=== PATIENT | female | born 1990 | race African-American/Black ===

== ENCOUNTER 2019-02-27 10:52 | Emergency (ER) | payer SELFPAY ==
--- NOTE | 2019-02-27 11:11 | EDM.PDOC ---
ED HPI GENERAL MEDICAL PROBLEM - General Chief Complaint: Abdominal Pain Stated Complaint: DARK BROWN VAGINAL BLEEDING/NAUSEA/ABD PAIN Time Seen by Provider: 02/27/19 11:06 Source of Information: Reports: Patient, RN Notes Reviewed History Limitations: Reports: No Limitations - History of Present Illness INITIAL COMMENTS - FREE TEXT/NARRATIVE: Patient is a 28-year-old female who presents to the ED for the evaluation of brown vaginal discharge, nausea, and abdominal pain. The patient notes that she had developed minimal abdominal pain and some lower pelvic pain yesterday. She took 400 mg of ibuprofen in the morning and then 400 mg again at night, she states that this did help initially but came back after the medicine wore off. The patient rate her pain at a 1 out of 10, and characterizes this as a cramping type of pain. She states that when she wipes after voiding she notices some dark brown discharge on the toilet paper. She notes that her period is supposed to be due around the 17. She's never experienced any sort of brown vaginal discharge for. She further notes some urinary frequency with this but no dysuria. She also states that the cramping pain kind of comes and goes, and had a normal bowel movement this morning. She complains of some light nausea, headache. She denies any sort of chest pain, fevers or chills, shortness of breath, black or bloody stools, history of any sort of ovarian cancer in her family or ovarian cysts, or any sort of history of ulcers or heartburn. Her primary care provider is Terrie Rivas. She states that she has had a but has not had any sort of other abdominal surgeries, so still retains her appendix and gallbladder. She also states that she's had her tubes tied, so she does not think she could be at this time. Lower Abdomen Pain Score (Numeric/FACES): 1 - Related Data Allergies Allergy/AdvReac Type Severity Reaction Status Date / Time No Known Allergies Allergy Verified 04/27/18 17:37 Home Meds: Home Meds . [No Known Home Meds] 02/27/19 [History] Past Medical History [employer]OR [employer] AD[employer]MENT History: Reports: - Past Surgical History Female Surgical History: Reports: Section Social & Family History - Family History Family Medical History: Noncontributory - Tobacco Use Smoking Status *Q: Current Every Day Smoker Years of Tobacco use: 7 Packs/Tins Daily: 1 - Caffeine Use Caffeine Use: Reports: Energy Drinks - Recreational Drug Use Recreational Drug Use: No ED ROS GENERAL - Review of Systems Review Of Systems: See Below Constitutional: Denies: Fever, Chills, Decreased Appetite HEENT: Reports: No Symptoms Respiratory: Denies: Shortness of Breath Cardiovascular: Denies: Chest Pain Endocrine: Reports: No Symptoms GI/Abdominal: Reports: Abdominal Pain (mid epigastric abd pain), Nausea. Denies : Black Stool, Bloody Stool, Constipation, Diarrhea, Decreased Appetite, Vomiting : Reports: Discharge (brown vaginal discharge), Frequency. Denies: Dysuria, Hematuria, Irregular Menses, Urgency Musculoskeletal: Reports: No Symptoms Skin: Reports: No Symptoms Neurological: Reports: No Symptoms Psychiatric: Reports: No Symptoms Hematologic/Lymphatic: Reports: No Symptoms Immunologic: Reports: No Symptoms ED EXAM, RENAL/ - Physical Exam Exam: See Below Exam Limited By: No Limitations General Appearance: Alert, WD/WN, No Apparent Distress Throat/Mouth: Normal Inspection, Normal Lips, Normal Teeth, Normal Gums, Normal Oropharynx, Normal Voice, No Airway Compromise Head: Atraumatic, Normocephalic Neck: Normal Inspection Respiratory/Chest: No Respiratory Distress, Lungs Clear, Normal Breath Sounds, No Accessory Muscle Use, Chest Non-Tender Cardiovascular: Normal Peripheral Pulses, Regular Rate, Rhythm, No Murmur GI/Abdominal: Normal Bowel Sounds, Soft, No Distention, No Mass, Tender (over epigastrium mainly) (Female) Exam: Normal External Exam, Normal Speculum Exam, Adnexal Tenderness (Right sided), Vaginal Discharge (scant amount of light brown, non malodorous discharge noted. swab was obtained for wet prep). No: Adnexal Mass Rectal (Female) Exam: Deferred Extremities: Normal Inspection, Normal Capillary Refill Neurological: Alert, Oriented, Normal Cognition, No Motor/Sensory Deficits Psychiatric: Normal Affect, Normal Mood Skin Exam: Warm, Dry, Intact, Normal Color, No Rash Course - Vital Signs Last Recorded V/S: Last Vital Signs Temp 98.1 F 02/27/19 11:05 Pulse 96 02/27/19 11:05 Resp 20 02/27/19 11:05 BP 125/87 02/27/19 11:05 Pulse Ox 100 02/27/19 11:05 - Orders/Labs/Meds Orders: Active Orders 24 hr Category Date Time Status Peripheral IV Care [RC] . DIRECTED Care 02/27/19 11:21 Active Sodium Chloride 0.9% [Saline Flush] Med 02/27/19 11:20 Active 10 ml FLUSH ASDIRECTED PRN Peripheral IV Insertion Adult [OM.PC] Stat Oth 02/27/19 11:20 Ordered Medication Orders Sodium Chloride (Saline Flush) 10 ml FLUSH ASDIRECTED PRN PRN Reason: Keep Vein Open Last Admin: 02/27/19 11:35 Dose: 10 ml Labs: Laboratory Tests 02/27/19 02/27/19 02/27/19 Range/Units 11:30 11:30 11:30 WBC 7.66 (3.98-10.04) K/mm3 RBC 4.45 (3.98-5.22) M/mm3 Hgb 12.9 (11.2-15.7) gm/L Hct 39.6 (34.1-44.9) % MCV 89.0 (79.4-94.8) fl MCH 29.0 (25.6-32.2) pg MCHC 32.6 (32.2-35.5) g/dl RDW Std Deviation 36.9 (36.4-46.3) fL Plt Count 224 (182-369) K/mm3 MPV 12.5 H (9.4-12.3) fl Neut % (Auto) 65.7 (34.0-71.1) % Lymph % (Auto) 27.5 (19.3-51.7) % [place] % (Auto) 4.8 (4.7-12.5) % Eos % (Auto) 1.4 (0.7-5.8) Baso % (Auto) 0.5 (0.1-1.2) % Neut # (Auto) 5.02 (1.56-6.13) K/mm3 Lymph # (Auto) 2.11 (1.18-3.74) K/mm3 [place] # (Auto) 0.37 H (0.24-0.36) K/mm3 Eos # (Auto) 0.11 (0.04-0.36) K/mm3 Baso # (Auto) 0.04 (0.01-0.08) K/mm3 Sodium 144 (136-145) mEq/L Potassium 4.0 (3.5-5.1) mEq/L Chloride 109 H (98-107) mEq/L Carbon Dioxide 26 (21-32) mEq/L Anion Gap 13.0 (5-15) BUN 12 (7-18) mg/dL Creatinine 0.8 (0.55-1.02) mg/dL Est Cr Clr Drug Dosing 79.71 mL/min Estimated GFR (MDRD) > 60 (>60) mL/min BUN/Creatinine Ratio 15.0 (14-18) Glucose 80 (74-106) mg/dL Calcium 9.0 (8.5-10.1) mg/dL Total Bilirubin 0.4 (0.2-1.0) mg/dL AST 10 L (15-37) U/L ALT 15 (14-59) U/L Alkaline Phosphatase 72 (46-116) U/L Total Protein 7.1 (6.4-8.2) g/dl Albumin 3.5 (3.4-5.0) g/dl Globulin 3.6 gm/dL Albumin/Globulin Ratio 1.0 (1-2) HCG, Qual (NEGATIVE) Urine Color Yellow (Yellow) Urine Appearance Clear (Clear) Urine pH 8.5 H (5.0-8.0) Ur Specific [place] 1.020 (1.005-1.030) Urine Protein Negative (Negative) Urine Glucose (UA) Negative (Negative) Urine Ketones Trace H (Negative) Urine Occult Blood Negative (Negative) Urine Nitrite Negative (Negative) Urine Bilirubin Negative (Negative) Urine Urobilinogen 4.0 H (0.2-1.0) Ur Leukocyte Esterase Negative (Negative) Urine RBC Not seen (0-5) /hpf Urine WBC 0-5 (0-5) /hpf Ur Epithelial Cells 0-5 (0-5) /hpf Urine Bacteria Rare (FEW) /hpf Urine Mucus Few (FEW) /hpf 02/27/19 Range/Units 11:30 WBC (3.98-10.04) K/mm3 RBC (3.98-5.22) M/mm3 Hgb (11.2-15.7) gm/L Hct (34.1-44.9) % MCV (79.4-94.8) fl MCH (25.6-32.2) pg MCHC (32.2-35.5) g/dl RDW Std Deviation (36.4-46.3) fL Plt Count (182-369) K/mm3 MPV (9.4-12.3) fl Neut % (Auto) (34.0-71.1) % Lymph % (Auto) (19.3-51.7) % [place] % (Auto) (4.7-12.5) % Eos % (Auto) (0.7-5.8) Baso % (Auto) (0.1-1.2) % Neut # (Auto) (1.56-6.13) K/mm3 Lymph # (Auto) (1.18-3.74) K/mm3 [place] # (Auto) (0.24-0.36) K/mm3 Eos # (Auto) (0.04-0.36) K/mm3 Baso # (Auto) (0.01-0.08) K/mm3 Sodium (136-145) mEq/L Potassium (3.5-5.1) mEq/L Chloride (98-107) mEq/L Carbon Dioxide (21-32) mEq/L Anion Gap (5-15) BUN (7-18) mg/dL Creatinine (0.55-1.02) mg/dL Est Cr Clr Drug Dosing mL/min Estimated GFR (MDRD) (>60) mL/min BUN/Creatinine Ratio (14-18) Glucose (74-106) mg/dL Calcium (8.5-10.1) mg/dL Total Bilirubin (0.2-1.0) mg/dL AST (15-37) U/L ALT (14-59) U/L Alkaline Phosphatase (46-116) U/L Total Protein (6.4-8.2) g/dl Albumin (3.4-5.0) g/dl Globulin gm/dL Albumin/Globulin Ratio (1-2) HCG, Qual Negative (NEGATIVE) Urine Color (Yellow) Urine Appearance (Clear) Urine pH (5.0-8.0) Ur Specific [place] (1.005-1.030) Urine Protein (Negative) Urine Glucose (UA) (Negative) Urine Ketones (Negative) Urine Occult Blood (Negative) Urine Nitrite (Negative) Urine Bilirubin (Negative) Urine Urobilinogen (0.2-1.0) Ur Leukocyte Esterase (Negative) Urine RBC (0-5) /hpf Urine WBC (0-5) /hpf Ur Epithelial Cells (0-5) /hpf Urine Bacteria (FEW) /hpf Urine Mucus (FEW) /hpf Meds: Medications Generic Name Dose Route Start Last Admin Trade Name Tc PRN Reason Stop Dose Admin Sodium Chloride 10 ml 02/27/19 11:20 02/27/19 11:35 Saline Flush FLUSH 10 ml ASDIRECTED PRN Administration Keep Vein Open Discontinued Medications Generic Name Dose Route Start Last Admin Trade Name Tc PRN Reason Stop Dose Admin Fluconazole 150 mg 02/27/19 13:14 Diflucan PO 02/27/19 13:15 ONETIME ONE Ketorolac Tromethamine 30 mg 02/27/19 11:20 02/27/19 11:34 Toradol IVPUSH 02/27/19 11:21 30 mg ONETIME ONE Administration Ondansetron HCl 4 mg 02/27/19 11:20 02/27/19 11:35 Zofran IVPUSH 02/27/19 11:21 4 mg ONETIME ONE Administration - Re-Assessments/Exams Free Text/Narrative Re-Assessment/Exam: 02/27/19 11:30 Patient presents to the ED for evaluation of brown vaginal discharge some mild nausea and abdominal pain. I did order CBC, CMP, UA and a serum hCG for initial management and labs, will obtain a new wet mount vaginal swab when I do her pelvic exam. I did also order a IV to be placed with 30 mg Toradol and 4 mg Zofran. Unclear as to what the etiology of her brown vaginal discharge at this time, we will await microscopy to see if this can shed any light on what might be going on. Although this might just be normal physiologic discharge as she is due for her period soon, or possibly just a very light menstrual period. 02/27/19 13:16 Patient's wet prep did demonstrate a moderate amount of yeast, some red blood cells and white blood cells, so it is a mix of normal physiologic discharge with yeast infection. We'll treat the patient for the yeast infection and give her other general recommendations and discharge her home. Departure - Departure Time of Disposition: 13:17 Disposition: Home, Self-Care 01 Condition: Fair Clinical Impression: Vaginal yeast infection - Discharge Information *PRESCRIPTION DRUG MONITORING PROGRAM REVIEWED*: No *COPY OF PRESCRIPTION DRUG MONITORING REPORT IN PATIENT ARIANNA: No Instructions: Vaginal Yeast Infection, Adult Referrals: Nickie Rivas PA-C [Primary Care Provider] - Forms: ED Department Discharge Additional Instructions: You were evaluated in the ED today for your brown vaginal discharge. Your laboratory evaluation was within normal limits, your vaginal swab did demonstrate that you had some [place] overgrowth, you were treated for a yeast infection at today's visit, you should only need this one dose of medication. The symptoms should resolve themselves in a few days' time. If you should develop worsening symptoms, you may return to the ED for further management. Otherwise you may follow up with your primary care physician sometime this week to make sure that everything is getting back to normal. Please return to the ED if your symptoms should change or worsen. - My Orders Last 24 Hours: My Active Orders 02/27/19 11:20 Sodium Chloride 0.9% [Saline Flush] 10 ml FLUSH ASDIRECTED PRN Peripheral IV Insertion Adult [OM.PC] Stat 02/27/19 11:21 Peripheral IV Care [RC] . DIRECTED - Assessment/Plan Last 24 Hours: My Active Orders 02/27/19 11:20 Sodium Chloride 0.9% [Saline Flush] 10 ml FLUSH ASDIRECTED PRN Peripheral IV Insertion Adult [OM.PC] Stat 02/27/19 11:21 Peripheral IV Care [RC] . DIRECTED
[2019-02-27] MEDS ORDERED: Ondansetron 4 MG/2 ML SDV IVPUSH ONE (11:20)
[2019-02-27] MEDS ORDERED: Ketorolac 30 MG/ML SDV IVPUSH ONE (11:20)
[2019-02-27] MEDS ORDERED: Sodium Chloride 0.9% 10 ML Syringe FLUSH PRN (11:20)
[2019-02-27] MEDS ORDERED: Fluconazole 150 MG Tab PO ONE (13:14)
== END 2019-02-27 13:32 | disposition home or self-care (01) ==
LOC: JD.ED 10:52
DX: B37.9 Candidiasis, unspecified (principal); R10.13 Epigastric pain; F17.210 Nicotine dependence, cigarettes, uncomplicated
CPT/HCPCS: 36415; 80053; 81001; 84703; 85025; 87210; 87808; 96374; 96375; 99284; A9270; J1885; J2405; 99283

== ENCOUNTER 2019-04-10 11:42 | Emergency (ER) | payer SELFPAY ==
--- NOTE | 2019-04-10 12:40 | EDM.PDOC ---
ED HPI GENERAL MEDICAL PROBLEM - General Chief Complaint: Genitourinary Problem Stated Complaint: GENITOURINARY PROBLEM Time Seen by Provider: 04/10/19 12:14 Source of Information: Reports: Patient, RN Notes Reviewed - History of Present Illness INITIAL COMMENTS - FREE TEXT/NARRATIVE: 28-year-old lady comes in with symptoms of voiding dysuria, burning, urgency. Charted yesterday, worse today. His have some mild low back discomfort but states "her back always hurts" some not a lot different today. No fever chills nausea or vomiting. 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: - Past Surgical History Female Surgical History: Reports: Section Social & Family History - Family History Family Medical History: Noncontributory - Tobacco Use Smoking Status *Q: Current Every Day Smoker Years of Tobacco use: 3 Packs/Tins Daily: 0.3 - Caffeine Use Caffeine Use: Reports: None, Energy Drinks - Recreational Drug Use Recreational Drug Use: No ED ROS GENERAL - Review of Systems Review Of Systems: See Below Constitutional: Denies: Fever, Chills HEENT: Reports: No Symptoms Respiratory: Denies: Shortness of Breath Cardiovascular: Denies: Chest Pain GI/Abdominal: Denies: Abdominal Pain, Nausea, Vomiting : Reports: Dysuria, Frequency, Urgency Musculoskeletal: Reports: Back Pain Neurological: Reports: No Symptoms ED EXAM, RENAL/ - Physical Exam Exam: See Below General Appearance: Alert, No Apparent Distress Throat/Mouth: Normal Inspection, Normal Oropharynx Head: Atraumatic Neck: Supple Respiratory/Chest: No Respiratory Distress, Lungs Clear, Normal Breath Sounds Cardiovascular: Regular Rate, Rhythm GI/Abdominal: Soft, Non-Tender Back Exam: Normal Inspection. No: CVA Tenderness (L), CVA Tenderness (R) Extremities: Normal Inspection, Normal Range of Motion Neurological: Alert, Oriented, No Motor/Sensory Deficits Skin Exam: Warm, Dry, Normal Color Course - Vital Signs Last Recorded V/S: Last Vital Signs Temp 97.8 F 04/10/19 11:54 Pulse 80 04/10/19 11:54 Resp 20 04/10/19 11:54 BP 109/77 04/10/19 11:54 Pulse Ox 100 04/10/19 11:54 - Orders/Labs/Meds Orders: Active Orders 24 hr Category Date Time Status CULTURE URINE [RM] Stat Lab 04/10/19 12:07 Received Labs: Laboratory Tests 04/10/19 Range/Units 12:07 Urine Color Yellow (Yellow) Urine Appearance Slt cloudy H (Clear) Urine pH 7.0 (5.0-8.0) Ur Specific [place] 1.025 (1.005-1.030) Urine Protein Trace H (Negative) Urine Glucose (UA) Negative (Negative) Urine Ketones Trace H (Negative) Urine Occult Blood Negative (Negative) Urine Nitrite Negative (Negative) Urine Bilirubin Negative (Negative) Urine Urobilinogen 4.0 H (0.2-1.0) Ur Leukocyte Esterase 2+ H (Negative) Urine RBC 0-5 (0-5) /hpf Urine WBC 20-30 H (0-5) /hpf Ur Epithelial Cells 10-20 H (0-5) /hpf Urine Bacteria Moderate H (FEW) /hpf Urine Mucus Many H (FEW) /hpf Ur Yeast w Hyphae Moderate H (NOT SEEN) Urine Yeast (Budding) Moderate H (NOT SEEN) Departure - Departure Time of Disposition: 12:51 Disposition: Home, Self-Care 01 Condition: Fair Clinical Impression: Yeast vaginitis UTI (urinary tract infection) Qualifiers: Urinary tract infection type: acute cystitis Hematuria presence: without hematuria Qualified Code(s): N30.00 - Acute cystitis without hematuria - Discharge Information Prescriptions: Nitrofurantoin Monohyd/M-Cryst [Macrobid 100 mg Capsule] 100 mg PO BID #10 capsule Instructions: Vaginal Yeast Infection, Adult, Urinary Tract Infection, Adult, [id number] Referrals: Nickie Rivas PA-C [Primary Care Provider] - Forms: ED Department Discharge Additional Instructions: Macrobid antibiotic 100 mg twice daily for 5 days, drink plenty water to maintain hydration. Oral fluconazole 150 mg today and then once again in 3 days. Follow-up with your regular medical provider if symptoms not resolving over the next 3-5 days as expected. - My Orders Last 24 Hours: My Active Orders 04/10/19 12:07 CULTURE URINE [RM] Stat - Assessment/Plan Last 24 Hours: My Active Orders 04/10/19 12:07 CULTURE URINE [] Stat
== END 2019-04-10 13:13 | disposition home or self-care (01) ==
LOC: JD.ED 11:42
DX: B37.3 Candidiasis of vulva and vagina (principal); N30.00 Acute cystitis without hematuria; F17.210 Nicotine dependence, cigarettes, uncomplicated
CPT/HCPCS: 81001; 87086; 87106; 99283

== ENCOUNTER 2019-09-11 12:29 | Emergency (ER) | payer SELFPAY ==
--- NOTE | 2019-09-11 13:11 | EDM.PDOC ---
ED HPI GENERAL MEDICAL PROBLEM - General Chief Complaint: Genitourinary Problem Stated Complaint: POSS UTI Time Seen by Provider: 09/11/19 13:09 - History of Present Illness INITIAL COMMENTS - FREE TEXT/NARRATIVE: 29-year-old female presents the emergency room with burning on urination. Patient states he has burning with urination no frequency. She also has some intermittent lower abdominal discomfort. She denies any fevers or chills she is got a white heavy vaginal discharge at this point. She says she has some swelling in the vaginal area that is quite tender. Patient denies any new sexual encounters she is just been with her fianc. 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: - Past Surgical History Female Surgical History: Reports: Section Social & Family History - Family History Family Medical History: Noncontributory - Tobacco Use Smoking Status *Q: Current Every Day Smoker Years of Tobacco use: 13 Packs/Tins Daily: 1 - Caffeine Use Caffeine Use: Reports: Energy Drinks - Recreational Drug Use Recreational Drug Use: No ED ROS GENERAL - Review of Systems Review Of Systems: See Below Constitutional: Reports: No Symptoms Respiratory: Reports: No Symptoms Cardiovascular: Reports: No Symptoms GI/Abdominal: Reports: Abdominal Pain (Lower abdominal discomfort that is intermittent). Denies: Constipation, Diarrhea, Nausea, Vomiting : Reports: Dysuria, Other (General discharge that is increased significantly) . Denies: Flank Pain, Frequency, Urgency Musculoskeletal: Reports: No Symptoms Skin: Reports: No Symptoms ED EXAM, GI/ABD - Physical Exam Exam: See Below Exam Limited By: No Limitations General Appearance: Alert, No Apparent Distress Head: Atraumatic, Normocephalic Neck: Normal Inspection, Supple, Non-Tender, Full Range of Motion Respiratory/Chest: No Respiratory Distress, Lungs Clear, Normal Breath Sounds Cardiovascular: Regular Rate, Rhythm, No Edema, No Murmur GI/Abdominal Exam: Normal Bowel Sounds, Soft, Other (Minimal suprapubic discomfort) (Female) Exam: Normal External Exam, Normal Speculum Exam, Adnexal Tenderness (Mild discomfort), Cervical Fluid (In increased clearish to white discharge no clumps in it no foul odor samples for GC chlamydia ARSEN wet mount and trichomoniasis obtained). No: Adnexal Mass Back Exam: Normal Inspection. No: CVA Tenderness (L), CVA Tenderness (R) Course - Vital Signs Last Recorded V/S: Last Vital Signs Temp 36.7 C 09/11/19 12:44 Pulse 84 09/11/19 12:44 Resp 16 09/11/19 12:44 BP 116/71 09/11/19 12:44 Pulse Ox 100 09/11/19 12:44 - Orders/Labs/Meds Orders: Active Orders 24 hr Category Date Time Status GC/CHLAMYDIA BY PCR [MOLEC] Stat Lab 09/11/19 13:45 Received Labs: Laboratory Tests 09/11/19 Range/Units 12:56 Urine Color Light yellow (Yellow) Urine Appearance Clear (Clear) Urine pH 5.5 (5.0-8.0) Ur Specific [place] 1.025 (1.005-1.030) Urine Protein Negative (Negative) Urine Glucose (UA) Negative (Negative) Urine Ketones Negative (Negative) Urine Occult Blood Trace-intact H (Negative) Urine Nitrite Negative (Negative) Urine Bilirubin Negative (Negative) Urine Urobilinogen 0.2 (0.2-1.0) Ur Leukocyte Esterase Negative (Negative) Urine RBC 5-10 H (0-5) /hpf Urine WBC 0-5 (0-5) /hpf Ur Squamous Epith Cells 5-10 H (0-5) /hpf Urine Bacteria Few (FEW) /hpf Urine Mucus Moderate H (FEW) /hpf - Re-Assessments/Exams Free Text/Narrative Re-Assessment/Exam: 09/11/19 16:02 GC and Chlamydia still pending at this point it looks like she has bacterial vaginosis no evidence of trichomoniasis. We will put on Flagyl 500 mg twice daily for 7 days 09/11/19 16:16 GC and Chlamydia are negative Departure - Departure Time of Disposition: 16:17 Disposition: Home, Self-Care 01 Clinical Impression: Bacterial vaginosis - Discharge Information Referrals: Nickie Rivas PA-C [Primary Care Provider] - Forms: ED Department Discharge Additional Instructions: Return to the emergency room with any questions problems or worsening symptoms. Take the antibiotics as directed. Discuss this diagnosis with your fianc and he may consider getting in to be evaluated for potential sexually transmitted diseases and further treatment Sepsis Event Note - Evaluation Sepsis Screening Result: No Definite Risk - Focused Exam Vital Signs: Vital Signs Temp Pulse Resp BP Pulse Ox 09/11/19 12:44 36.7 C 84 16 116/71 100 Date Exam was Performed: 09/11/19 Time Exam was Performed: 16:02 - My Orders Last 24 Hours: My Active Orders 09/11/19 13:45 GC/CHLAMYDIA BY PCR [MOLEC] Stat - Assessment/Plan Last 24 Hours: My Active Orders 09/11/19 13:45 GC/CHLAMYDIA BY PCR [MOLEC] Stat
[2019-09-11 16:02] LABS: C. TRACHOMATIS BY PCR NOT DETECTED; N. GONORRHOEAE BY PCR NOT DETECTED
[2019-09-11] MEDS ORDERED: metroNIDAZOLE 500 MG Tab PO ONE (16:02)
== END 2019-09-11 16:24 | disposition home or self-care (01) ==
LOC: JD.ED 12:29
DX: N76.0 Acute vaginitis (principal); F17.210 Nicotine dependence, cigarettes, uncomplicated
CPT/HCPCS: 81001; 81025; 87210; 87491; 87591; 99283; A9270

== ENCOUNTER 2021-10-08 19:03 | Emergency (ER) | payer SELFPAY ==
[2021-10-08] MEDS ORDERED: Ketorolac 15 MG/ML SDV IM ONE (19:55)
[2021-10-08] MEDS ORDERED: Benzonatate 100 MG Cap PO ONE (19:55)
[2021-10-08 20:08] LABS: CORONAVIRUS COVID-19 NAA NEGATIVE (NEGATIVE)
== END 2021-10-08 20:52 | disposition home or self-care (01) ==
LOC: JD.ED 19:03
DX: J06.9 Acute upper respiratory infection, unspecified (principal); Z20.822 Contact with and (suspected) exposure to COVID-19
CPT/HCPCS: 0240U; 87651; 96372; 99283; A9270; J1885

== ENCOUNTER 2022-03-07 21:13 | Emergency (ER) | payer SELFPAY ==
[2022-03-07] MEDS ORDERED: Lactated Ringers 500 ML IV ONE (22:15)
[2022-03-07] MEDS ORDERED: Ondansetron 4 MG/2 ML SDV IVPUSH ONE (22:15)
[2022-03-07] MEDS ORDERED: Lactated Ringers 1,000 ML IV SCH (22:30)
[2022-03-07 22:33] LABS: CORONAVIRUS COVID-19 NAA NEGATIVE (NEGATIVE)
[2022-03-07 23:15] LABS: ESTIMATED GFR 102 mL/min (>60)
[2022-03-08] MEDS ORDERED: Ondansetron 4 MG Tab.DIS PO ONE (00:34)
[2022-03-08] MEDS ORDERED: Azithromycin 250 MG Tab PO ONE (00:34)
[2022-03-08] MEDS ORDERED: Potassium Chloride 20 MEQ Tab.ER PO ONE (01:50)
== END 2022-03-08 02:05 | disposition home or self-care (01) ==
LOC: JD.ED 21:13
DX: J40 Bronchitis, not specified as acute or chronic (principal); R11.2 Nausea with vomiting, unspecified; F17.210 Nicotine dependence, cigarettes, uncomplicated; E66.9 Obesity, unspecified; Z68.26 Body mass index [BMI] 26.0-26.9, adult; Z79.899 Other long term (current) drug therapy; Z20.822 Contact with and (suspected) exposure to COVID-19
CPT/HCPCS: 0240U; 36415; 71045; 80053; 81003; 83690; 84484; 85025; 85379; 93005; 96361; 96374; 99285; A9270; J2405; J7120; 93010; 99284

== ENCOUNTER 2022-05-28 08:48 | Day surgery (SDC) | payer SELFPAY ==
[~2022-05-28 08:48] MED LIST: Lactated Ringers 1,000 ML IV SCH; Lidocaine 1%/Sod Bicarbonate in NS 8.4% 1 ML Syringe IDERM PRN; Sodium Chloride 0.9% 10 ML Syringe FLUSH PRN
[2022-05-28] MEDS ORDERED: Sodium Chloride 0.9% 10 ML Syringe FLUSH SCH (09:00)
[2022-05-28] MEDS ORDERED: Propofol 200 MG/20 ML SDV ONE (10:47)
[2022-05-28] MEDS ORDERED: fentaNYL 100 MCG/2 ML SDV ONE (10:48)
[2022-05-28] MEDS ORDERED: Lidocaine 1% 2 ML ONE (10:58)
== END 2022-05-28 12:10 | disposition home or self-care (01) ==
LOC: JD.SDS 08:48
PROVIDERS: ATTEND Surgery
DX: K29.50 Unspecified chronic gastritis without bleeding (principal); K29.80 Duodenitis without bleeding; B96.81 Helicobacter pylori [H. pylori] as the cause of diseases classified elsewhere; F32.A Depression, unspecified; F41.9 Anxiety disorder, unspecified; E66.9 Obesity, unspecified; N39.0 Urinary tract infection, site not specified; F17.210 Nicotine dependence, cigarettes, uncomplicated; Z68.30 Body mass index [BMI] 30.0-30.9, adult; Z79.899 Other long term (current) drug therapy; Z98.890 Other specified postprocedural states
CPT/HCPCS: 43239; J2704; J3010; J7120; 00731

== ENCOUNTER 2022-06-27 19:23 | Emergency (ER) | payer SELFPAY | END 2022-06-27 22:02 | disposition home or self-care (01) | LOC: JD.ED 19:23 | DX: S06.0X0A Concussion without loss of consciousness, initial encounter (principal); S00.03XA Contusion of scalp, initial encounter; S00.531A Contusion of lip, initial encounter; R59.0 Localized enlarged lymph nodes; K21.9 Gastro-esophageal reflux disease without esophagitis; E66.9 Obesity, unspecified; Z79.899 Other long term (current) drug therapy; W22.8XXA Striking against or struck by other objects, initial encounter | CPT/HCPCS: 70450; 70450-26; 70486; 70486-26; 72125; 72125-26; 99284 ==